=== PATIENT | female | born 1945 | race Caucasian/White ===

== ENCOUNTER → 2017-02-25 | Outpatient (CLI) | payer OTHER | LOC: BMCIMAGING 11:08 | PROVIDERS: ATTEND Internal Medicine | DX: Z12.39 Encounter for other screening for malignant neoplasm of breast (principal); N64.4 Mastodynia; N64.52 Nipple discharge | CPT/HCPCS: 76641; G0204 ==

== ENCOUNTER → 2017-03-04 | Outpatient (CLI) | payer OTHER ==
[~2017-03-04] MED LIST: ACETAMINOPHEN 325 MG TAB ONE; BUPIVACAINE 0.5% 10 ML SDV ONE; LIDO/EPI 1% **Not for Epidural 20 ML MDV ONE; LIDOCAINE 1% 300 MG/30 ML SDV ONE; THROMBIN (BOVINE) 5,000 UNIT VIAL TP ONE
== END ==
LOC: FIMAGING 07:18
PROVIDERS: ATTEND Internal Medicine
PROC: 0HBT3ZX Excision of Right Breast, Percutaneous Approach, Diagnostic (ICD-10-PCS; principal; 2017-03-04)
DX: D05.11 Intraductal carcinoma in situ of right breast (principal)

== ENCOUNTER 2017-05-12 10:45 | Observation (INO) | payer OTHER ==
[2017-05-12] MEDS ORDERED: LIDOCAINE 1% 2 ML INJ ONE (10:59)
--- NOTE | 2017-05-12 11:13 | PDHPUP ---
History & Physical Update H&P update statement: This history and physical update is based on an assessment of the patient which was completed after admission or registration (within 24 hours), but prior to the surgery/procedure. H&P update: H&P reviewed & patient examined, no change in patient's condition since H&P completed
[2017-05-12] MEDS ORDERED: LR 1,000 ML IV ONE (11:16)
[2017-05-12] MEDS ORDERED: LIDOCAINE 1% 2 ML INJ ID PRN (11:16)
[2017-05-12] MEDS ORDERED: ceFAZolin 2 GM/DEXTROSE 100 ML IV ONE (11:21)
[2017-05-12] MEDS ORDERED: BUPIVACAINE 0.25% 30 ML SDV ONE (13:38)
[2017-05-12] MEDS ORDERED: METHYLENE BLUE 0.5% 50 MG/10 ML AMP ONE ×2 (13:39→15:33)
[2017-05-12] MEDS ORDERED: ceFAZolin 1 GM/5 ML SYR ONE ×2 (13:39→14:05)
[2017-05-12] MEDS ORDERED: GENTAMICIN SULFATE 80 MG/2 ML VIAL ONE ×2 (13:39→14:04)
[2017-05-12] MEDS ORDERED: BACITRACIN 50,000 UNITS/10 ML SYR IRR ONE ×2 (13:45→14:05)
[2017-05-12] MEDS ORDERED: MIDAZOLAM 2 MG/2 ML VIAL IVP ONE (13:47)
--- NOTE | 2017-05-12 13:47 | PDANEPAE ---
ANE Past Medical History - Cardiovascular History Hx Hypertension: No Hx Arrhythmias: Yes Hx Chest Pain: No Hx Coronary Artery / Peripheral Vascular Disease: Yes Hx CHF / Valvular Disease: No Hx Palpitations: No Cardiovascular History Comment: CHB. PACER PLACED 12/2013. HYPERLIPIDEMIA. MITRAL REGURGITATION - Pulmonary History Hx COPD: No Hx Asthma/Reactive Airway Disease: No Hx Recent Upper Respiratory Infection: No Hx Oxygen in Use at Home: No Hx Sleep Apnea: No Sleep Apnea Screening Result - Last Documented: Negative - Neurologic History Hx Cerebrovascular Accident: No Hx Seizures: No Hx Dementia: No Neurologic History Comment: vertigo 2013ish - Endocrine History Hx Diabetes: No - Renal History Hx Renal Disorders: No - Liver History Hx Hepatic Disorders: No - Neurological & Psychiatric Hx Hx Neurological and Psychiatric Disorders: No - Cancer History Hx Cancer: Yes Cancer History Comment: breast cancer currently - Congenital Disorder History Hx Congenital Disorders: No - GI History Hx Gastrointestinal Disorders: No - Other Health History Other Health History: wears glasses for distance. rash under breasts from moisture and heat- uses hydrocortisone - Chronic Pain History Chronic Pain: No (occ back pain nothing chronic) - Surgical History Prior Surgeries: pacemaker placed. cataracts. uterine surgery for endometriosis ANE Review of Systems - Exercise capacity METS (RN): 4 METS - Pacemaker Pacemaker Type: Permanent Pacer/Defib Pacemaker Embedded Systems Software Engineer: Medtronic Pacemaker Model: ADAPTA L ADDR L1 Pacemaker Mode: DDDR Pacemaker Set Rate: 70 Date Pacemaker Last Checked: 05/11/2017 ANE Patient History - Allergies Allergies/Adverse Reactions: morphine Allergy (Verified 04/30/17 11:39) Vomiting - Home Medications Home Medications: Cholecalciferol (Vitamin D3) [Vitamin D3] 2,000 unit PO DAILY 12/30/13 [Last Taken 05/05/17] Herbals/Supplements -Info Only 1 each PO AD 12/30/13 [Last Taken 05/05/17] [place]-3 Fatty Acids [Fish Oil 1000 mg (OTC)] 1,000 mg PO DAILY 12/30/13 [Last Taken 05/05/17] Multivitamins [Multivitamin (*)] 1 each PO DAILY 04/23/17 [Last Taken 05/05/17] - NPO status NPO Since - Liquids (Date): 05/11/17 NPO Since - Liquids (Time): 23:00 NPO Since - Solids (Date): 08/07/17 NPO Since - Solids (Time): 21:00 - Smoking Hx Smoking Status: Former smoker ANE Labs/Vital Signs - Vital Signs Blood Pressure: 167/93 Heart Rate: 92 Respiratory Rate: 16 O2 Sat (%): 94 Height: 173.99 cm Weight: 77.111 kg ANE Physical Exam - Airway Neck exam: decreased ROM Mallampati Score: Class 2 Mouth exam: normal dental/mouth exam - Pulmonary Pulmonary: no respiratory distress - Cardiovascular Cardiovascular: regular rate and rhythym - ASA Status ASA Status: II (pacer check done)
[2017-05-12] MEDS ORDERED: CEFAZOLIN 2 GM/DEXTROSE/100 ML BAG IV ONE (13:58)
[2017-05-12] MEDS ORDERED: MIDAZOLAM 2 MG/2 ML VIAL ONE (14:02)
[2017-05-12] MEDS ORDERED: PROPOFOL/EMULSION 500 MG/50 ML BOTTLE IV ONE ×2 (14:02→15:50)
[2017-05-12] MEDS ORDERED: fentaNYL 100 MCG/2 ML INJ ONE ×3 (14:02→17:14)
[2017-05-12] MEDS ORDERED: NALOXONE HCL 0.4 MG/ML INJ IVP PRN (15:15)
[2017-05-12] MEDS ORDERED: fentaNYL 100 MCG/2 ML INJ IVP PRN (15:20)
[2017-05-12] MEDS ORDERED: ONDANSETRON 4 MG/2 ML VIAL IVP PRN (15:51)
[2017-05-12] MEDS ORDERED: ZOLPIDEM TARTRATE 5 MG TAB PO PRN (15:51)
[2017-05-12] MEDS ORDERED: TEMAZEPAM 15 MG CAP PO PRN (15:51)
--- NOTE | 2017-05-12 15:51 | POSTOPPROG ---
Post Op Note Date of Operation: 05/12/17 Surgeon: Jace Mendez Anesthesiologist: [place] Anesthesia: GET(General Endotracheal) Pre-op Diagnosis: Right breast DCIS Post-op Diagnosis: Same Procedure: Right simple mast with ax SLNB, immed TE reconstr Inf/Abcess present in the surg proc area at time of surgery?: No EBL: Minimal Complications: no immediate Drains: Jean-Paul Piña Specimen(s): breast, addit upper outer quadrant, slnb x2
[2017-05-12] MEDS ORDERED: LR 1,000 ML IV SCH (16:00)
[2017-05-12] MEDS ORDERED: BACITRACIN ZINC 14.2 GM OINTTUBE TP ONE (16:41)
--- NOTE | 2017-05-12 16:45 | POSTOPPROG ---
Post Op Note Date of Operation: 05/12/17 Surgeon: Kaushik Galvan White Shoe Ragger: Jonas NAJERA Anesthesia: GET(General Endotracheal) Pre-op Diagnosis: Right Breast cancer Post-op Diagnosis: Right breast cancer Indication: Breast cancer Procedure: right breast recon with tissue chimney repairer and AlloDerm Findings: right skin sparing mastectomy Inf/Abcess present in the surg proc area at time of surgery?: No EBL: Minimal (20cc) Total fluids administered: 900cc Complications: none Drains: Jean-Paul Piña Specimen(s): none
[2017-05-12] MEDS ORDERED: DEXAMETHASONE 4 MG/ML VIAL ONE (17:02)
[2017-05-12] MEDS ORDERED: ONDANSETRON 4 MG/2 ML VIAL ONE ×3 (17:02→17:40)
[2017-05-12] MEDS ORDERED: ROCURONIUM 50 MG/5 ML VIAL ONE (17:02)
[2017-05-12] MEDS ORDERED: SUGAMMADEX SODIUM 200 MG/2 ML VIAL IVP ONE (17:02)
[2017-05-12] MEDS ORDERED: METOCLOPRAMIDE 10 MG/2 ML VIAL ONE (17:02)
[2017-05-12] MEDS ORDERED: RANITIDINE 50 MG/2 ML VIAL ONE (17:02)
[2017-05-12] MEDS ORDERED: HYDROmorphONE/DILAUDID 1 MG/ML SYR ONE (17:14)
--- NOTE | 2017-05-12 17:14 | POSTANESTH ---
Post Anesthetic Evaluation Respiratory Status: Normal, Stable Level of Consciousness/Mental Status: Moderately Sleepy Pain Control: Adequate, Prn Tx Ordered Nausea/Vomiting Control: Adequate, Prn Tx Ordered Complications Possibly Related to Anesthesia: None Noted (no problems with pacer , evaluated in PACU and function is normal)
[2017-05-12] MEDS: ONDANSETRON 4 MG/2 ML VIAL IVP PRN ×2 (17:16→17:50)
[2017-05-12] MEDS: HYDROmorphONE/DILAUDID 1 MG/ML SYR IVP PRN ×5 (17:19→19:52)
[2017-05-12] MEDS ORDERED: PROMETHAZINE HCL 25 MG/ML INJ IVP PRN (17:48)
[2017-05-12] MEDS ORDERED: KETOROLAC 15 MG/1 ML SDV ONE (17:57)
[2017-05-12] MEDS ORDERED: PROMETHAZINE HCL 25 MG/ML INJ ONE (17:58)
[2017-05-12] MEDS: KETOROLAC 15 MG/1 ML SDV IVP SCH ×2 (17:59→23:54)
--- NOTE | 2017-05-12 21:54 | GOP ---
[f rep st] OPERATIVE REPORT DATE OF OPERATION: 05/12/2017 SURGEON: Jace Mendez MD PLASTIC SURGEON: Kaushik Galvan MD ANESTHESIA: General. ANESTHESIOLOGIST: Jordon Osborne MD PREOPERATIVE DIAGNOSIS: Right breast ductal carcinoma in situ. POSTOPERATIVE DIAGNOSIS: Right breast ductal carcinoma in situ. PROCEDURE PERFORMED: Right simple mastectomy with axillary sentinel node biopsy with immediate tissue wrapper hand reconstruction. FINDINGS: None. INDICATIONS: 71-year-old female with a progressively enlarging right central breast mass with increasing nipple discharge. A prior image-guided biopsy disclosed areas of DCIS. Given the options of breast conservation versus mastectomy, the patient has opted to undergo a right unilateral mastectomy with immediate tissue wrapper hand reconstruction. The surgical risks and benefits were explained including bleeding, infection, tumor recurrence, potential alternative findings, skin flap necrosis, arm edema, nerve injury, and indications for completion axillary dissection. All questions were answered. She desires to proceed. Unique complications related to tissue wrapper hand placement were discussed by Dr. Galvan. Patient's pacemaker had been checked perioperatively with plans to be reassessed in the postoperative period, post the use of electrocautery. All questions were answered. She desires to proceed. DESCRIPTION OF PROCEDURE: General anesthesia was induced upon returning from lymphoscintigraphy. An elliptical central breast incision was created encompassing the nipple-areolar complex. Using electrocautery, skin flaps were created to the level of the clavicle, sternum, inframammary fold, as well as latissimus dorsi muscle laterally. The breast envelope was peeled from medial to lateral, incorporating the pectoralis major fascia, taking the dissection high into the axillary tail of [facility]. The specimen was tagged for orientation and sent for permanent specimen processing. Additional right upper-outer quadrant breast tissue was subsequently excised and sent as a separate specimen. The axilla was opened. A total of 2 hot nodes were identified. These were clinically soft and fatty in appearance. The first measured 6500 units on the gamma counter and the second 5000 units on the gamma counter with background activity all being less than 75 units. Satisfactory hemostasis was assured. The intercostal brachial nerve was identified, preserved, and left intact. The thoracodorsal long thoracic nerves were not dissected out. Care of the case was turned to Dr. Galvan for tissue wrapper hand placement and wound closure. /[id number]/MODL MTDD
[2017-05-12] MEDS: IBUPROFEN 600 MG TAB PO SCH (22:24)
[2017-05-12] MEDS: CYCLOBENZAPRINE 10 MG TAB PO SCH (22:25)
--- NOTE | 2017-05-13 01:29 | GOP ---
[f rep st] OPERATIVE REPORT DATE OF OPERATION: 05/12/2017 SURGEON: Kaushik Galvan MD ORNAMENTAL METAL ERECTOR APPRENTICE: Jonas NAJERA ANESTHESIA: General endotracheal anesthesia. PREOPERATIVE DIAGNOSIS: Right breast cancer. POSTOPERATIVE DIAGNOSIS: Right breast cancer. PROCEDURE PERFORMED: Right breast reconstruction with tissue telemarketing sales representative and AlloDerm. FINDINGS: Right skin-sparing mastectomy. SPECIMENS: None. ESTIMATED BLOOD LOSS: (For my part) 20 cc. INDICATIONS: The patient is a pleasant 71-year-old female with newly-diagnosed right breast cancer. She has elected to undergo right skin-sparing mastectomy with sentinel lymph node biopsy with immediate tissue telemarketing sales representative reconstruction and AlloDerm today. DESCRIPTION OF PROCEDURE: The patient was met in the preoperative area where the risks and benefits were discussed with her at length, which include but not limited to infection, bleeding, hematoma, seroma, mastectomy skin flap partial or total necrosis, asymmetry with the contralateral breast, paresthesias, injury to major vessels, pneumothorax, and general anesthesia risks as well as DVT, pulmonary embolism and untimely . She was agreeable to this and therefore signed the operative consent. Prior to going to the operating room, she received 10 mg of Decadron as well as 1 g of Ancef perioperatively for surgical prophylaxis before any incision being made. Once in the operating room , SCDs were placed for DVT prophylaxis, and we did not place a urinary catheter due to length of this case. Prior to going asleep, a timeout was performed where all in the room agreed on the site and procedure to be performed. The right mastectomy part will be dictated by my colleague, Dr. Mendez. We started our procedure on the right side. We examined the mastectomy skin flaps which seemed to be viable. There were a few small bleeders that were coagulated with electrocautery and the pocket was washed out with copious amounts of sterile saline. We began by identifying the lateral border of the pectoralis major muscle. This was then lifted off the chest wall to develop the subpectoral pocket for the impending placement of the tissue telemarketing sales representative. This was raised medially as well as superiorly and then taken off the inferior border of the pectoralis major off the chest wall. I then measured the base width of the chest wall and deemed this to be 14 cm. We, therefore, chose an telemarketing sales representative, a [id number] Allergen Natrelle telemarketing sales representative for placement in the pocket. That was then passed off and opened in a closed sterile fashion and bathed in triple-antibiotic saline consisting of Ancef, bacitracin, and gentamicin. Once we were happy with the pocket, a 16 x 20cm piece of AlloDerm was then traced out in order to cover the rest of the subpectoral pocket and cut to a contour piece of allow attachment to the patient's inframammary fold as well as the lateral chest wall. This was sutured in an interrupted fashion with 2-0 Vicryl suture. The pocket was then washed out with triple-antibiotic saline. Any bleeders were coagulated with electrocautery and hemostasis was confirmed. The telemarketing sales representative was then in a closed sterile fashion, all the air was taken out and orientation mendez were placed on the telemarketing sales representative. This was then placed in the subpectoral pocket and once orientation was confirmed and we were pleased with the orientation, this was then sutured to the chest wall via the tabs with 2-0 interrupted PDS sutures. The subpectoral pocket was then closed by taking the inferior border of the pectoralis major muscle and suturing this to the superior border of the AlloDerm with a running 2-0 Vicryl suture. Two 15- Danish round drains were placed; 1 within the axilla and 1 within the IMF, and were sutured to the skin with 2-0 silk sutures. Then in a closed sterile fashion, a magnifier was used to fill the telemarketing sales representative with 300 cc of sterile saline infused with methylene blue. The skin was then closed in a complex fashion with 3-0 Monocryl deep dermal subdermal sutures and a running 4-0 Monocryl as well as skin summer. The wound was then dressed with bacitracin, Xeroform, fluffs, and a surgical bra as well as a Mepilex AG dressing over the drains. The count was correct at the end of the case. There were no complications. The right telemarketing sales representative serial number was [id number], initial fill volume was 300 out of 600 cc. Again, this was a [id number] telemarketing sales representative. IV FLUIDS: 900 cc. URINE OUTPUT: Not recorded. COMPLICATIONS: None. /[id number]/MODL MTDD
[2017-05-13] MEDS: KETOROLAC 15 MG/1 ML SDV IVP SCH ×2 (05:29→12:14)
[2017-05-13] MEDS: IBUPROFEN 600 MG TAB PO SCH ×2 (05:30→15:06)
[2017-05-13] MEDS: CYCLOBENZAPRINE 10 MG TAB PO SCH (09:17)
[2017-05-13] MEDS: HYDROCODONE/APAP 5/325 TAB PO PRN ×2 (09:24→17:30)
--- NOTE | 2017-05-13 11:03 | SOAPPROG ---
SOAP Progress Note Assessment/Plan: Assessment: Patient resting in recliner. Pain controlled. Slept well overnight. No new complaints. afeb, VSS, I/O YLNNE 1- 95/24hr, LYNNE 2 85/24hr. A&O x 3, drains stripped - serosanguinous drainage. Incision: clean/ dry. A/P: d/c soon, continue pain control, d/c fluids. Plan: 05/13/17 11:02 05/13/17 11:04 Objective: Vital Signs Temp Pulse Resp BP Pulse Ox 36.9 C 70 14 122/61 H 96 05/13/17 08:25 05/13/17 08:25 05/13/17 08:25 05/13/17 08:25 05/13/17 08:25 05/12/17 05/13/17 05/14/17 05:59 05:59 05:59 Intake Total 2434 Output Total 725 30 Balance 1709 -30 ICD10 Worksheet Patient Problems: Problems Problem Status Onset Breast cancer Acute - ICD10 Problem Qualifiers (1) Breast cancer Qualifiers: Breast location: B Estrogen receptor status: E Patient sex: P Laterality: L
[2017-05-13 15:18] VITALS: BP 110/51; PULSE 73; RESP 16; TEMP 98.5; O2SAT 90
== END 2017-05-13 18:27 | disposition home or self-care (01) ==
LOC: F3E 10:45 → F1N 18:48
PROVIDERS: ADMIT Surgery; ATTEND Surgery
DX: C50.911 Malignant neoplasm of unspecified site of right female breast (principal); E78.5 Hyperlipidemia, unspecified; I34.0 Nonrheumatic mitral (valve) insufficiency; Z87.891 Personal history of nicotine dependence; Z95.0 Presence of cardiac pacemaker
CPT/HCPCS: 15777; 19304; 19357; 38525; 38792; A9520; J0690; J1100; J1170; J1885; J2250; J2405; J2550; J2704; J2765; J2780; J3010; Q9968; Q4116

== ENCOUNTER 2017-06-12 12:11 | Day surgery (SDC) | payer OTHER ==
[2017-06-12] MEDS ORDERED: LR 1,000 ML IV ONE (12:37)
[2017-06-12] MEDS ORDERED: LIDOCAINE 1% 2 ML INJ ID PRN (12:37)
[2017-06-12] MEDS ORDERED: BUPIVACAINE 0.5% 30 ML SDV ONE (13:37)
--- NOTE | 2017-06-12 15:00 | POSTOPPROG ---
Post Op Note Date of Operation: 06/12/17 Surgeon: Jace Mendez Anesthesiologist: Jonathan Oakes Anesthesia: GET(General Endotracheal) Pre-op Diagnosis: Right breast cancer Post-op Diagnosis: Same Procedure: Right completion axillary lymph node dissection Inf/Abcess present in the surg proc area at time of surgery?: No EBL: Minimal Drains: Jean-Paul Piña Specimen(s): axillary contents
--- NOTE | 2017-06-12 15:10 | PDANEPAE ---
ANE History of Present Illness Patient presents for axillary node dissection on the right ANE Past Medical History - Cardiovascular History Hx Hypertension: No Hx Arrhythmias: Yes Hx Chest Pain: No Hx Coronary Artery / Peripheral Vascular Disease: Yes Hx CHF / Valvular Disease: No Hx Palpitations: No Cardiovascular History Comment: CHB. PACER PLACED 12/2013. HYPERLIPIDEMIA. MITRAL REGURGITATION - Pulmonary History Hx COPD: No Hx Asthma/Reactive Airway Disease: No Hx Recent Upper Respiratory Infection: No Hx Oxygen in Use at Home: No Hx Sleep Apnea: No Sleep Apnea Screening Result - Last Documented: Negative - Neurologic History Hx Cerebrovascular Accident: No Hx Seizures: No Hx Dementia: No Neurologic History Comment: vertigo 2013ish - Endocrine History Hx Diabetes: No - Renal History Hx Renal Disorders: No - Liver History Hx Hepatic Disorders: No - Neurological & Psychiatric Hx Hx Neurological and Psychiatric Disorders: No - Cancer History Hx Cancer: Yes Cancer History Comment: breast - Congenital Disorder History Hx Congenital Disorders: No - GI History Hx Gastrointestinal Disorders: No - Other Health History Other Health History: wears glasses for distance. rash under breasts from moisture and heat- uses hydrocortisone - Chronic Pain History Chronic Pain: No (occ back pain nothing chronic) - Surgical History Prior Surgeries: RT BREAST MASTECTOMY WITH RECONSTRUCTION 05/12/17. pacemaker placed. cataracts. uterine surgery for endometriosis ANE Review of Systems Review of Systems: - Exercise capacity METS (RN): 4 METS - Pacemaker Pacemaker Type: Permanent Pacer/Defib Pacemaker Butadiene Compressor Operator: Medtronic Pacemaker Model: ADAPTA L ADDR L1 Pacemaker Mode: DDDR Pacemaker Set Rate: 70 Date Pacemaker Last Checked: 05/11/2017 ANE Patient History - Allergies Allergies/Adverse Reactions: morphine Allergy (Verified 04/30/17 11:39) Vomiting - Home Medications Home medications: home medication list seen and reviewed Home Medications: Cholecalciferol (Vitamin D3) [Vitamin D3] 2,000 unit PO DAILY 12/30/13 [Last Taken 06/08/17] Herbals/Supplements -Info Only 1 each PO AD 12/30/13 [Last Taken 06/08/17] Multivitamins [Multivitamin (*)] 1 each PO DAILY 04/23/17 [Last Taken 06/08/17] - NPO status NPO Status: no food or drink >8 hours NPO Since - Liquids (Date): 06/11/17 NPO Since - Liquids (Time): 22:30 NPO Since - Solids (Date): 06/11/17 NPO Since - Solids (Time): 22:30 - Anes Hx Anes Hx: no prior problems - Smoking Hx Smoking Status: Former smoker ANE Labs/Vital Signs - Vital Signs Blood Pressure: 167/94 Heart Rate: 96 Respiratory Rate: 16 O2 Sat (%): 92 Height: 173.99 cm Weight: 77.111 kg ANE Physical Exam - Airway Neck exam: FROM Mallampati Score: Class 2 Mouth exam: normal dental/mouth exam - Pulmonary Pulmonary: no respiratory distress - Cardiovascular Cardiovascular: pulses symmetric bilaterally - ASA Status ASA Status: III ANE Anesthesia Plan Anesthesia Plan: GA w LMA (RBA discussed)
[2017-06-12] MEDS ORDERED: DEXAMETHASONE 4 MG/ML VIAL ONE (15:13)
[2017-06-12] MEDS ORDERED: ONDANSETRON 4 MG/2 ML VIAL ONE (15:13)
[2017-06-12] MEDS ORDERED: PROPOFOL 200 MG/20 ML VIAL ONE (15:13)
[2017-06-12] MEDS ORDERED: fentaNYL 100 MCG/2 ML INJ ONE ×2 (15:13→15:59)
[2017-06-12] MEDS ORDERED: LIDOCAINE 2% 5 ML SDV ONE (15:13)
[2017-06-12] MEDS ORDERED: OXYCODONE/APAP 5/325 TAB PO PRN (16:13)
[2017-06-12] MEDS ORDERED: ONDANSETRON 4 MG/2 ML VIAL IVP PRN (16:13)
[2017-06-12] MEDS ORDERED: NALOXONE HCL 0.4 MG/ML INJ IVP PRN (16:13)
[2017-06-12] MEDS ORDERED: HYDROCODONE/APAP 5/325 TAB PO PRN (16:13)
[2017-06-12] MEDS ORDERED: fentaNYL 100 MCG/2 ML INJ IVP PRN (16:13)
[2017-06-12] MEDS ORDERED: LR 500 ML IV PRN (16:13)
--- NOTE | 2017-06-12 16:55 | POSTANESTH ---
Post Anesthetic Evaluation Cardiovascular Status: Normal, Stable Respiratory Status: Normal, Stable Level of Consciousness/Mental Status: Can Participate in Eval Pain Control: Adequate, Prn Tx Ordered Nausea/Vomiting Control: Adequate, Prn Tx Ordered Complications Possibly Related to Anesthesia: None Noted
[2017-06-12 17:42] VITALS: TEMP 97.5
--- NOTE | 2017-06-12 17:49 | GOP ---
[f rep st] OPERATIVE REPORT DATE OF OPERATION: 06/12/2017 SURGEON: Jace Mendez MD ANESTHESIA: General. ANESTHESIOLOGIST: Dr. Overton. PREOPERATIVE DIAGNOSIS: Right breast carcinoma. POSTOPERATIVE DIAGNOSIS: Right breast carcinoma. PROCEDURE PERFORMED: Right completion axillary lymph node dissection. FINDINGS: None. INDICATIONS: 71-year-old female with a prior history of diffuse right breast DCIS. [place] node sampling disclosed evidence of metastatic carcinoma. Various multimodality options were discussed with the patient in the multidisciplinary breast conference. It was opted to proceed with a completion axillary dissection at this time. Risks and benefits were explained of bleeding , infection, nerve injury, as well as arm edema. All questions were answered. She desires to proceed. DESCRIPTION OF PROCEDURE: General anesthesia was induced. The axilla was injected with 0.5% Marcaine and 1% lidocaine. A low hairline incision was created. The subcutaneous tissues were divided down through the axillary fat plane. There was a minimal amount of scarring from the prior sentinel node dissection. Using the Harmonic Scalpel, the fatty tissue was dissected off the chest wall as well as the latissimus dorsi muscle. The contents were also dissected away from the axillary vein. The long thoracic nerve, thoracodorsal nerve, and intercostal brachial nerves were all identified and preserved throughout the dissection. Using the ultrasonic dissector, tissues were all peeled inferiorly and sent as completion axillary contents. Satisfactory hemostasis was assured throughout the wound. The defect was closed in layers over a 10 flat Jean-Paul-Piña drain with absorbable suture followed by Dermabond. The patient was taken to Recovery uneventfully. /[id number]/MODL MTDD
[2017-06-12 18:26] VITALS: BP 154/92; PULSE 73; RESP 18; O2SAT 91
== END 2017-06-12 18:25 | disposition home or self-care (01) ==
LOC: FSGY 12:11
PROVIDERS: ATTEND Surgery
PROC: 07T50ZZ Resection of Right Axillary Lymphatic, Open Approach (ICD-10-PCS; principal; 2017-06-12 13:45)
DX: C50.911 Malignant neoplasm of unspecified site of right female breast (principal); C77.3 Secondary and unspecified malignant neoplasm of axilla and upper limb lymph nodes; E78.5 Hyperlipidemia, unspecified; I34.0 Nonrheumatic mitral (valve) insufficiency; Z98.890 Other specified postprocedural states; Z87.891 Personal history of nicotine dependence; Z95.0 Presence of cardiac pacemaker; Z90.11 Acquired absence of right breast and nipple
CPT/HCPCS: J1100; J2405; J2704; J3010

== ENCOUNTER → 2018-04-12 | Outpatient (CLI) | payer OTHER | LOC: FIMAGING 13:44 | PROVIDERS: ATTEND Surgery | DX: Z12.31 Encounter for screening mammogram for malignant neoplasm of breast (principal); Z85.3 Personal history of malignant neoplasm of breast; Z90.11 Acquired absence of right breast and nipple; Z98.82 Breast implant status ==